=== PATIENT | female | born 1990 ===

== ENCOUNTER 2018-03-02 12:20 | Inpatient (IN) | payer OTHER ==
[~2018-03-02] VITALS: Ht 152.4 cm; Wt 65.8 kg
[2018-03-02] MEDS ORDERED: IRON325 MG PO (12:52)
[2018-03-02] MEDS ORDERED: PRENATAL TABLE1 EAC1 PO (12:52)
== END 2018-03-05 14:10 | DRG 785 ==
LOC: LDR 12:20 → OB/GYN 18:16
PROVIDERS: ADMIT Obstetrics & Gynecology
PROC: 0UL70ZZ Occlusion of Bilateral Fallopian Tubes, Open Approach (ICD-10-PCS; 2018-03-02)
PROC: 4A1HXCZ Monitoring of Products of Conception, Cardiac Rate, External Approach (ICD-10-PCS; 2018-03-02)
PROC: 10D00Z1 Extraction of Products of Conception, Low, Open Approach (ICD-10-PCS; principal; 2018-03-02 16:00)
DX: O82 Encounter for cesarean delivery without indication (principal); O34.211 Maternal care for low transverse scar from previous cesarean delivery; O75.82 Onset (spontaneous) of labor after 37 completed weeks of gestation but before 39 completed weeks gestation, with delivery by (planned) cesarean section; Z3A.38 38 weeks gestation of pregnancy; Z37.0 Single live birth; Z30.2 Encounter for sterilization